=== PATIENT | male | born 2000 | race Two or more races ===

== ENCOUNTER 2021-03-17 21:05 | Emergency (ER) | payer MEDICAID ==
[~2021-03-17] VITALS: Ht 172.7 cm; Wt 68.0 kg
[2021-03-17] MEDS ORDERED: MAGNESIUM/ALUMINUM HYDROXIDE/SIMETHICONE 30ML UDC PO STA (22:17)
[2021-03-17] MEDS ORDERED: VISCOUS LIDOCAINE 2% 15 ML UDC PO STA (22:17)
[2021-03-17] MEDS ORDERED: ACETAMINOPHEN 325MG TABLET PO ONE (23:30)
[2021-03-17 23:47] VITALS: BP 114/65
== END 2021-03-17 23:58 | disposition home or self-care (01) ==
LOC: ER 21:05
DX: R07.89 Other chest pain (principal)
CPT/HCPCS: 71045; 93005; 99284